=== PATIENT | female | born 1955 | race Caucasian/White ===

== ENCOUNTER 2018-09-23 14:19 | Emergency (ER) | payer BC ==
[~2018-09-23] VITALS: Ht 167.6 cm; Wt 81.4 kg
[2018-09-23 14:30] VITALS: TEMP 97.8
[2018-09-23] MEDS ORDERED: K-TAB10 PO (15:32)
[2018-09-23] MEDS ORDERED: TOPROL XL 50MG50 MG PO (15:32)
[2018-09-23] MEDS ORDERED: PREMARIN .3MG0.3 MG PO (15:32)
[2018-09-23] MEDS ORDERED: PLAQUENIL 200M200 MG PO (15:33)
[2018-09-23] MEDS ORDERED: SALAGEN 5MG TAB5 MG PO (15:33)
[2018-09-23 16:48] VITALS: BP 135/70; PULSE 70
== END 2018-09-23 17:04 | disposition home or self-care (01) ==
LOC: COL.ER 14:19
DX: S09.90XA Unspecified injury of head, initial encounter (principal); S01.21XA Laceration without foreign body of nose, initial encounter; S01.511A Laceration without foreign body of lip, initial encounter; Z23 Encounter for immunization; I10 Essential (primary) hypertension; Z90.710 Acquired absence of both cervix and uterus; W01.198A Fall on same level from slipping, tripping and stumbling with subsequent striking against other object, initial encounter; Y92.410 Unspecified street and highway as the place of occurrence of the external cause